=== PATIENT | female | born 1950 | race Caucasian/White ===

== ENCOUNTER → 2020-06-04 | Outpatient (CLI) | payer OTHER ==
[~2020-06-04] MED LIST: ALLERCLEAR PO; COZAAR100 MG PO; HYDROCHLOROTH12.5 M1 PO; HYDROCODON-ACE1 EAC8 PO; OMEPRAZOLE 20 M20 M1 PO; TOPROL XL25 MG PO; XARELTO20 MG PO
[2020-06-04 14:02] LABS: URINE BILIRUBIN NEGATIVE (Negative); URINE BLOOD 1+ (Negative); URINE CLARITY SL CLOUDY; URINE COLOR YELLOW; URINE GLUCOSE-RANDOM* NEGATIVE (Negative); URINE KETONES NEGATIVE (Negative); URINE LEUKOCYTES-REFLEX NEGATIVE (Negative); URINE PROTEIN (DIPSTICK) NEGATIVE (Negative); URINE SPECIFIC GRAVITY >= 1.030 (1.005-1.035); URINE UROBILINOGEN 0.2 E.U./dl (0.2-1.0)
[2020-06-04 14:06] LABS: HEMATOCRIT 37.5 % (37.0-47.0); HEMOGLOBIN 12.1 gm/dL (12.0-15.0); MCH 29.3 pg (26.0-34.0); MCHC 32.3 g/dL (28.0-37.0); MCV 90.7 fL (80.0-100.0); RBC 4.13 mil/uL (4.20-5.00); RDW 13.9 % (10.5-14.5); URINE NITRITE-REFLEX POSITIVE (Negative)
[2020-06-04 14:12] LABS: ALBUMIN 4.1 g/dL (3.4-5.0); CREATININE 0.9 mg/dL (0.6-1.0); POTASSIUM 4.4 mmol/L (3.5-5.1)
[2020-06-04 14:15] LABS: CASTS None Seen /LPF (None Seen); CRYSTALS None Seen /LPF (None Seen); SQUAMOUS 0-3 Few /LPF (0-3)
[2020-06-04 14:16] LABS: BACTERIA-REFLEX >30 Many /HPF (None Seen); URINE RBC 0-2 Rare /HPF (0-2); URINE WBC-REFLEX None Seen /HPF (0-5)
[2020-06-04 14:18] LABS: INR 1.2; PROTIME 12.5 Seconds (9.3-11.4)
== END ==
LOC: LAB 14:12
PROVIDERS: ATTEND Orthopaedic Surgery
DX: Z20.828 Contact with and (suspected) exposure to other viral communicable diseases (principal)

== ENCOUNTER → 2020-06-26 | Outpatient (CLI) | payer OTHER ==
[~2020-06-26] VITALS: Ht 157.5 cm; Wt 86.2 kg
[~2020-06-26] MED LIST changes: +AZELASTINE205.5 MCG/ NARES; +SINGULAIR 5 MG C5 M1 PO
== END ==
LOC: EDSTATUS 06-09 10:07 → PRE 06-09 10:18 → PAC 10:08
PROVIDERS: ATTEND Orthopaedic Surgery
DX: Z53.9 Procedure and treatment not carried out, unspecified reason (principal)

== ENCOUNTER 2020-07-09 10:18 | Inpatient (IN) | payer OTHER ==
[~2020-07-09] VITALS: Ht 154.9 cm; Wt 88.9 kg
[~2020-07-09 10:18] MED LIST changes: -ALLERCLEAR PO; -AZELASTINE205.5 MCG/ NARES; -SINGULAIR 5 MG C5 M1 PO
[2020-07-18] MEDS ORDERED: ALLERCLEAR PO (10:53)
[2020-07-23 11:02] LABS: HEMATOCRIT 36.6 % (37.0-47.0); HEMOGLOBIN 11.8 gm/dL (12.0-15.0); MCHC 32.3 g/dL (28.0-37.0); MCV 89.8 fL (80.0-100.0); RBC 4.07 mil/uL (4.20-5.00); RDW 13.7 % (10.5-14.5); WBC 4.8 thou/uL (4.0-11.0)
[2020-07-23 11:05] LABS: URINE BILIRUBIN NEGATIVE (Negative); URINE BLOOD TRACE (Negative); URINE CLARITY CLEAR; URINE COLOR YELLOW; URINE GLUCOSE-RANDOM* NEGATIVE (Negative); URINE KETONES NEGATIVE (Negative); URINE LEUKOCYTES-REFLEX NEGATIVE (Negative); URINE PROTEIN (DIPSTICK) NEGATIVE (Negative); URINE SPECIFIC GRAVITY >= 1.030 (1.005-1.035); URINE UROBILINOGEN 0.2 E.U./dl (0.2-1.0)
[2020-07-23 11:09] LABS: URINE NITRITE-REFLEX POSITIVE (Negative)
[2020-07-23 11:10] LABS: ALBUMIN 3.6 g/dL (3.4-5.0)
[2020-07-23 11:32] LABS: PROTIME 9.8 Seconds (9.3-11.4)
[2020-07-23 11:38] LABS: CASTS None Seen /LPF (None Seen); MUCUS 4-6 Moderate strn/LPF (None Seen); SQUAMOUS >10 Many /LPF (0-3)
[2020-07-23 11:39] LABS: BACTERIA-REFLEX >30 Many /HPF (None Seen); CRYSTALS None Seen /LPF (None Seen); URINE RBC 0-2 Rare /HPF (0-2); URINE WBC-REFLEX 0-5 Rare /HPF (0-5)
[2020-07-28 12:12] VITALS: BP 144/81
[2020-07-28 15:10] VITALS: BP 116/71
[2020-07-28 15:15] VITALS: BP 120/76
[2020-07-28 15:45] VITALS: BP 135/79
[2020-07-28 16:01] VITALS: BP 120/76
[2020-07-28] MEDS ORDERED: SINGULAIR 5 MG C5 M1 PO (16:49)
[2020-07-28] MEDS ORDERED: AZELASTINE205.5 MCG/ NARES (16:51)
--- NOTE | 2020-07-28 18:38 | NUR ---
assumed care at 1500. pt is a&o x4. evi/scd/celia are intact. polar care is intact. pt was on 2L on NC. but checked oxygen with RA and pt is on 95%. iv on left arm is intact and shows no signs of redness or swelling. regular diet. bedrest today as pt states that she melvi her knees. pt complains of pain at 3 or 4 and pain medication was given to pt. spoken to son, simba, to take home medication back home or home medications will be through pharmacy. pt and son understands to take home medications home. fall precaution. call light within reach. pt is pleasant. dressing on left knee is intact and shows no signs of drainage.
[2020-07-28 20:26] VITALS: BP 125/66
--- NOTE | 2020-07-29 04:00 | NUR ---
PT IS PLEASANT AND COOPERATIVE. L KNEE WITH TABBY DRSG AND POLAR VASQUEZ. TEDS AND SCDS IN PLACE. VSS. AFEBRILE. STABLE ON ROOM AIR. PAIN MANAGED WITH NORCO. WAS USING BEDPAN THRO NOC, VOIDING OKAY.
[2020-07-29 06:03] LABS: HEMATOCRIT 30.8 % (37.0-47.0); MCH 29.1 pg (26.0-34.0); MCHC 32.6 g/dL (28.0-37.0); MCV 89.1 fL (80.0-100.0); RBC 3.45 mil/uL (4.20-5.00); RDW 13.1 % (10.5-14.5); WBC 11.4 thou/uL (4.0-11.0)
--- NOTE | 2020-07-29 10:11 | NUR ---
ASSESSMENT: CM REVIEWED CHART AND SPOKE WITH PT. PT IS S/P LEFT TKA. PT REPORTS LIVING AT HOME WITH HER SON AND GRANDSON IN A HOUSE. PT REPORTS HAVING TWO STEPS WITH NO HANDRAIL TO ENTER AND NO STEPS SHE HAS TO USE ONCE INSIDE. SHE REPORTS SHE HAS A WALKER AT HOME FOR AMBULATION. PT REPORTS SHE HAS OUTPATIENT THERAPY ARRANGED AT [facility]. PT REPORTS THAT SHE HAS NO NEEDS FROM CM. CM WILL CONTINUE TO FOLLOW TO ASSIST NEEDED. PT WILL DISCHARGE HOME ONCE CLEARED BY THERAPY.
[2020-07-29 19:50] VITALS: BP 99/53
[2020-07-30 03:15] VITALS: BP 117/57
[2020-07-30 06:27] LABS: HEMATOCRIT 26.9 % (37.0-47.0); HEMOGLOBIN 8.9 gm/dL (12.0-15.0); MCH 29.7 pg (26.0-34.0); MCHC 33.2 g/dL (28.0-37.0); MCV 89.4 fL (80.0-100.0); RBC 3.01 mil/uL (4.20-5.00); RDW 13.5 % (10.5-14.5); WBC 6.5 thou/uL (4.0-11.0)
[2020-07-30 06:30] VITALS: BP 117/61
--- NOTE | 2020-07-30 07:47 | NUR ---
PT WALKED TO THE BATHROOM WITH ROLLER WALKER. REQUIRES SBA. PT GOT NORCO FOR PAIN, NEEDED TO BE GIVEN IVP MORPHINE X 1 FOR BREAK THROUGH PAIN. AFEBRILE. GOOD CSM TO LLE. SCDS, TEDS AND POLAR VASQUEZ IN PLACE.
--- NOTE | 2020-07-30 09:59 | NUR ---
ON-GOING ASSESSMENT: CM REVIEWED CHART AND SPOKE WITH PT. PT REPORTS HAVING ALOT OF PAIN TODAY AND STATES SHE DOES NOT FEEL SHE WILL DISCHARGE TOMORROW. PHYSICAL THERAPY IS RECOMMENDING A YOUTH WALKER FOR PATIENT. PT REPORTS NO PREFERENCE OF [employer]. CM NOTIFIED [facility] WHO REPORTS THEY CAN DELIVER A WALKER TO PATIENT PRIOR TO DISCHARGE. CM WILL CONTINUE TO FOLLOW TO ASSIST NEEDED.
--- NOTE | 2020-07-30 14:33 | NUR ---
PATIENT UP IN BEDSIDE CHAIR TALKING ON TELEPHONE PAIN RELIEF FROM PRN PAIN MED. WALKED THE HALLS WITH THERAPY.
[2020-07-30 16:39] VITALS: BP 102/65
[2020-07-30 20:45] VITALS: BP 109/64
[2020-07-31 03:26] VITALS: BP 135/56
--- NOTE | 2020-07-31 05:28 | NUR ---
ASSESSED AT START OF SHIFT, PT A&OX4. UP WITH SBA TO THE BATHROOM. PAIN MANGED WITH PO OXYCODONE. IV INTACT AND SL. SCD'S, BRYAN HOSE AND POLAR PACK ON EXT. PT RESTING WELL THIS SHIFT. FALL PREC IN PLACE AND CALL LIGHT AT REACH.
[2020-07-31 05:35] LABS: HEMATOCRIT 28.3 % (37.0-47.0); HEMOGLOBIN 9.2 gm/dL (12.0-15.0); MCHC 32.5 g/dL (28.0-37.0); MCV 89.2 fL (80.0-100.0); RBC 3.17 mil/uL (4.20-5.00); RDW 13.7 % (10.5-14.5)
[2020-07-31 08:06] VITALS: BP 135/70
--- NOTE | 2020-07-31 10:48 | NUR ---
assumed care at 0700. pt is a&o x4. pt complains of pain and was given oxycodone. IV on L. AC is intact and shows no signs of redness or swelling. dressing intact. pt denies numbness, n/v, soa. pt has active bm and soft abd. evi/scd/polar care is intact. capillary refill is less than 2 seconds. standby assist with walker. fall precaution. call light within reach. skin is intact. ra. will continue to monitor.
--- NOTE | 2020-07-31 13:21 | NUR ---
ON-GOING ASSESSMENT: CM REVIEWED CHART. PT CONTINUES TO WORK WITH THERAPY. PLANS ARE FOR PATIENT TO GO HOME TOMORROW.
[2020-07-31 17:33] VITALS: BP 112/61
[2020-07-31 20:50] VITALS: BP 122/68
--- NOTE | 2020-08-01 03:05 | NUR ---
ASSESSED AT START OF SHIFT. PT A&OX4. PAIN MANGED BY PO OXYCODONE. UP WITH SBA TO THE BATHROOM. PT AMBULATING WELL. DENIES N/V. ANTICIPATING DC TOMORROW. SCD'S, POLAR PACK AND BRYAN HOSE INTACT. FALL PREC IN PLACE AND CALL LIGHT AT REACH WILL CONT TO MONITOR.
[2020-08-01 05:10] VITALS: BP 145/99
[2020-08-01 08:30] VITALS: BP 124/69
[2020-08-01 14:45] VITALS: BP 124/69
--- NOTE | 2020-08-01 16:43 | NUR ---
Assumed care of pt. at 0700. Pt. was calm and cooperative. Pt. was ready to go home. PT/OT approved discharge of pt. Pt. was given discharge info/education and perscriptions. Pt. left with all belongings and donated home walker to PT.
--- NOTE | 2020-08-04 14:11 | O ---
[facility] [address] [place] [address] OPERATIVE REPORT Name: HARINDER MOSS Room #: 446-P [facility] IN M.R.#: [id number] Admission: 07/30/20 Attend Phys: David Crews MD Discharge: 08/01/20 Date of : 50 Report #: [id number] THIS REPORT FOR: cc: Chauncey Herrera MD,Chauncey Crews,David Rosenbaum MD ~ DATE OF SERVICE: 07/28/2020 PREOPERATIVE DIAGNOSES: 1. Left knee osteoarthritis. 2. Retained hardware, left femoral anterior cruciate ligament interference screw. POSTOPERATIVE DIAGNOSES: 1. Left knee osteoarthritis. 2. Retained hardware, left femoral anterior cruciate ligament interference screw. PROCEDURES: 1. Left total knee arthroplasty using Navio robotic captain's assistant. 2. Hardware removal, deep left femur. SURGEON: David Crews MD. SUPERINTENDENT MECHANICAL: Kate Luke PA-C. INDICATIONS FOR SUPERINTENDENT MECHANICAL: Throughout the case, extensive retraction and manipulation of the knee was required. This was afforded to me by my captain's assistant. ANESTHESIA: LMA with an adductor canal block. IMPLANTS: [employer] size 5 Journey II BCS cobalt chrome posterior stabilized femur, size 3 tibia, size 12 polyethylene and size 32 patella. TOURNIQUET TIME: 54 minutes. ESTIMATED BLOOD LOSS: 25 mL. COMPLICATIONS: None. SPECIMENS: None. CONDITION UPON LEAVING THE OPERATING ROOM: Stable. INDICATIONS FOR PROCEDURE: The patient is a 70-year-old female with left knee [facility] [place] [address] OPERATIVE REPORT Name: HARINDER MOSS Room #: 446-P [facility] IN M.R.#: [id number] Admission: 07/30/20 Attend Phys: David Crews MD Discharge: 08/01/20 Date of : 50 Report #: [id number] osteoarthritis. She had failed conservative measures for this and after discussion with her, she elected for left total knee arthroplasty. She did have a history of a previous ACL reconstruction and had a metallic femoral interference screw and we did discuss the potential need for screw removal as needed. DESCRIPTION OF PROCEDURE: Risks, benefits, alternatives, complications were discussed in detail with the patient including but not limited to risk of anesthesia, risk of damage to nerves, arteries, blood vessels, risk for infection, bleeding, risk for continued knee pain, need for reoperation. Informed consent was obtained from the patient. The left knee was appropriately marked in the preoperative holding area. IV Ancef was given for preoperative antibiotics. She was brought to the operating room and placed in supine position on operating room table. LMA anesthesia was induced without complication. Tourniquet was placed on the left thigh. Left lower extremity was prepped and draped in normal sterile fashion. Timeout was performed properly identifying the patient and procedure as well as the instrumentation and implants. All in the operating room were in agreement. Left lower extremity was exsanguinated, tourniquet was inflated. Tourniquet time was 54 minutes. Standard midline approach to the knee was made with 10 blade through the skin. Dissection was taken down sharply to the fascia and deep flaps were developed medially and laterally. Fresh 10 blade was used to make a medial parapatellar arthrotomy and the knee was inspected. There was severe tricompartmental osteoarthritis. ACL and PCL were removed sharply. Reference pins were placed in the femur and the tibia. The knee was then digitally mapped using the Renrendai robotic system. Intraoperative plan was made and we sized the size 5 femur with a size 3 tibia and 10 spacer. After acceptance of the intraoperative plan, the distal femoral cut was made with a Navio bur. Distal femoral cutting block was pinned in place and chamfer cuts were made. Attention was turned to the tibia. Remainder of the menisci removed with Bovie cautery. Tibial resection guide was pinned in place using the Navio for placement and tibial resection was made. After this, flexion and extension gaps were checked and found to have good balance both medially and laterally in flexion and extension. Tibia was sized, found to be a size 3. Size 3 tibial trial was placed, pinned and punched. A size 5 femoral trial was placed and the box cut was attempted. We did run into the interference screw and this was then removed with a Max screwdriver. The box cut was completed. The knee was then trialed with a size 11 and then a size 12 polyethylene and size 12 demonstrated 1-2 mm of laxity medially and laterally throughout range of motion. A 9 mm was resected from the posterior surface of the patella and a size 32 patellar trial button was placed. Knee was taken through range of motion, found to be stable, found to have good patellar tracking. Trial components were removed. Bony ends were thoroughly irrigated with normal saline. A final size 3 tibia, size 5 Journey II BCS cobalt chrome femur and size 32 patella were cemented in place using standard cementation techniques. While the cement cured, a periarticular [facility] [address] [place] [address] OPERATIVE REPORT Name: HARINDER MOSS Room #: 446-P [facility] IN [place].#: [id number] Admission: 07/30/20 Attend Phys: David Crews MD Discharge: 08/01/20 Date of : 50 Report #: [id number] injection consisting of morphine, ropivacaine, epinephrine and Toradol was placed around the knee joint capsule. After the cement cured, the tourniquet was deflated. Hemostasis was obtained with Bovie cautery. Final size 12 constrained polyethylene was placed. A gram of vancomycin was placed deep in the joint. The fascia was closed with 0 Vicryl, skin was closed with 2-0 Vicryl, skin staple and a TABBY dressing was applied. The patient tolerated this procedure well and went to recovery room under care of anesthesia postoperatively. <ELECTRONICALLY SIGNED> By: David Crews MD 08/04/20 1411 1620 [id number] David Crews MD /nt
== END 2020-08-01 15:09 | disposition home or self-care (01) | DRG 467 ==
LOC: PRE 10:18 → 4S 07-28 08:54 → PRE 07-28 08:54 → TBA 07-28 08:54 → PRE 07-28 10:13 → TBA 07-28 13:41 → 4S 07-28 15:10 → TBA 07-28 15:10 → 4S 07-30 14:00 → TBA 07-30 14:00 → PRE 07-30 14:00 → TBA 07-30 14:00 → 4S 08-01 15:09
PROVIDERS: ADMIT Orthopaedic Surgery; ATTEND Orthopaedic Surgery
PROC: 8E0Y0CZ Robotic Assisted Procedure of Lower Extremity, Open Approach (ICD-10-PCS; principal; 2020-07-28)
PROC: 3E0T3BZ Introduction of Anesthetic Agent into Peripheral Nerves and Plexi, Percutaneous Approach (ICD-10-PCS; principal; 2020-07-28)
PROC: 0SPD0JZ Removal of Synthetic Substitute from Left Knee Joint, Open Approach (ICD-10-PCS; principal; 2020-07-28)
PROC: 0SRD0J9 Replacement of Left Knee Joint with Synthetic Substitute, Cemented, Open Approach (ICD-10-PCS; principal; 2020-07-28)
DX: M17.12 Unilateral primary osteoarthritis, left knee (principal); D62 Acute posthemorrhagic anemia; I10 Essential (primary) hypertension; Z90.49 Acquired absence of other specified parts of digestive tract; Z90.710 Acquired absence of both cervix and uterus; Z88.8 Allergy status to other drugs, medicaments and biological substances; Z98.42 Cataract extraction status, left eye; Z98.41 Cataract extraction status, right eye; E66.9 Obesity, unspecified; Z68.37 Body mass index [BMI] 37.0-37.9, adult
CPT/HCPCS: 10102; 50010; 50101; 50415; 50954; 51130; 51225; 51320; 51412; 52001; 52282; 53000; 53078; 56527; 56528; 57095; 57103; 57110; 57127; 57180; 58239; 62110; 62900; 64043; 65060; 70005

== ENCOUNTER → 2020-07-23 | Outpatient (CLI) | payer OTHER ==
[~2020-07-23] MED LIST changes: +ALLERCLEAR PO; +AZELASTINE205.5 MCG/ NARES; +SINGULAIR 5 MG C5 M1 PO
== END ==
LOC: LAB 11:19
PROVIDERS: ATTEND Orthopaedic Surgery
DX: Z01.812 Encounter for preprocedural laboratory examination (principal); Z20.828 Contact with and (suspected) exposure to other viral communicable diseases